=== PATIENT | female | born 1970 | race Caucasian/White ===

== ENCOUNTER 2020-06-05 05:23 | Inpatient (IN) | payer OTHER ==
[2020-06-05] MEDS ORDERED: Celecoxib 200 MG Cap PO ONE (05:30)
[2020-06-05] MEDS ORDERED: Scopolamine 1.5 MG Transdermal Patch TOP ONE (05:30)
[2020-06-05] MEDS ORDERED: Acetaminophen 500 MG Tab PO ONE (05:30)
[2020-06-05] MEDS ORDERED: Gabapentin 300 MG Cap PO ONE (05:30)
[2020-06-05] MEDS ORDERED: Dextrose 5%-Lactated Ringers 1,000 ML IV SCH (06:00)
[2020-06-05] MEDS ORDERED: cefOXitin 2 GM Vial ONE (06:38)
[2020-06-05] MEDS ORDERED: cefOXitin 2 GM in Sodium Chloride 0.9% 50 ML IV ONE (07:00)
[2020-06-05] MEDS ORDERED: Ondansetron 4 MG/2 ML SDV ONE (07:07)
[2020-06-05] MEDS ORDERED: Dexamethasone 4 MG/ML SDV ONE (07:07)
[2020-06-05] MEDS ORDERED: Rocuronium 50 MG/5 ML Vial ONE (07:07)
[2020-06-05] MEDS ORDERED: Glycopyrrolate 0.2 MG/ML 5 ML MDV ONE (07:07)
[2020-06-05] MEDS ORDERED: Propofol 200 MG/20 ML SDV ONE (07:07)
[2020-06-05] MEDS ORDERED: Succinylcholine 200 MG/10 ML MDV ONE (07:07)
[2020-06-05] MEDS ORDERED: fentaNYL 250 MCG/5 ML SDV ONE ×2 (07:07→07:54)
[2020-06-05] MEDS ORDERED: Neostigmine Methylsulfate 1 MG/ML 5 ML Syringe ONE (07:07)
[2020-06-05] MEDS ORDERED: Lactated Ringers 1,000 ML ONE (07:10)
[2020-06-05] MEDS ORDERED: Ketamine 500 MG/5 ML MDV IV SCH (08:30)
[2020-06-05] MEDS ORDERED: Ketamine 50 MG in Sodium Chloride 0.9% 49.5 ML IV SCH (08:30)
[2020-06-05] MEDS ORDERED: hydrOXYzine HCL 100 MG/2 ML SDV IM ONE (09:18)
[2020-06-05] MEDS ORDERED: fentaNYL 100 MCG/2 ML SDV IVPUSH ONE (09:18)
[2020-06-05] MEDS ORDERED: Cyclobenzaprine 10 MG Tab PO PRN (10:33)
[2020-06-05] MEDS: Dextrose 5%-Lactated Ringers 1,000 ML IV SCH ×2 (10:44→23:18)
[2020-06-05] MEDS: HYDROmorphone 0.5 MG/0.5 ML Syringe IVPUSH PRN ×2 (10:46→19:54)
[2020-06-05] MEDS ORDERED: Albuterol/Ipratropium 3.0-0.5 MG/3 ML Neb Soln INH PRN (10:59)
[2020-06-05] MEDS ORDERED: diphenhydrAMINE 50 MG/ML SDV IVPUSH PRN (11:00)
[2020-06-05] MEDS ORDERED: hydrOXYzine HCL 100 MG/2 ML SDV IM PRN (11:00)
[2020-06-05] MEDS ORDERED: HYDROmorphone 1 MG/ML Syringe IV PRN (11:00)
[2020-06-05] MEDS ORDERED: Calcium Gluconate 10% 1 GM/10 ML SDV IVPUSH PRN (11:00)
[2020-06-05] MEDS ORDERED: cefOXitin 2 GM in Sodium Chloride 0.9% 50 ML IV SCH (11:00)
[2020-06-05] MEDS ORDERED: Labetalol 20 MG/4 ML Syringe IVPUSH PRN (11:00)
[2020-06-05] MEDS ORDERED: Acetaminophen 500 MG Tab PO PRN (11:00)
[2020-06-05] MEDS: Albuterol/Ipratropium 3.0-0.5 MG/3 ML Neb Soln INH SCH ×4 (11:05→22:10)
[2020-06-05] MEDS: cefOXitin 2 GM in Sodium Chloride 0.9% 50 ML IV SCH ×2 (13:38→19:54)
[2020-06-05] MEDS: Ondansetron 4 MG/2 ML SDV IVPUSH PRN ×2 (15:32→19:54)
[2020-06-05] MEDS: oxyCODONE 5 MG Tab PO PRN (15:32)
[2020-06-05] MEDS: Acetaminophen 500 MG Tab PO SCH ×2 (15:33→23:29)
[2020-06-05] MEDS: Heparin Sodium 5,000 Units/ML Vial SUBCUT SCH (15:34)
[2020-06-05] MEDS ORDERED: MVI, Adult with Vitamin K 10 ML, Thiamine 200 MG, Chromium/Copper/Mang/Selen/Zn 1 ML in... IV SCH ×4 (16:00)
[2020-06-05] MEDS ORDERED: Pantoprazole 40 MG Vial IVPUSH SCH (16:00)
[2020-06-05] MEDS: Metoclopramide 10 MG/2 ML SDV IVPUSH PRN (16:07)
[2020-06-05] MEDS: Gabapentin 300 MG Cap PO SCH (22:10)
[2020-06-05] MEDS: Rifampin 150 MG Cap PO SCH (22:10)
[2020-06-05] MEDS: DULoxetine 30 MG Cap PO SCH (22:10)
[2020-06-05] MEDS: Topiramate 25 MG Tab PO SCH (22:11)
[2020-06-05] MEDS: Montelukast 10 MG Tab PO SCH (22:11)
[2020-06-05] MEDS: traZODone 50 MG Tab PO SCH (22:11)
[2020-06-05] MEDS: Sulfamethoxazole/Trimethoprim 800-160 MG Tab PO SCH (22:11)
[2020-06-05] MEDS ORDERED: Acetaminophen 1,000 MG in Premix Bag 1 BAG IV ONE (22:50)
[2020-06-06] MEDS: cefOXitin 2 GM in Sodium Chloride 0.9% 50 ML IV SCH ×4 (01:15→19:46)
[2020-06-06] MEDS: Ondansetron 4 MG/2 ML SDV IVPUSH PRN (03:04)
[2020-06-06] MEDS ORDERED: diphenhydrAMINE 50 MG/ML SDV IVPUSH ONE (03:30)
[2020-06-06] MEDS ORDERED: methylPREDNISolone Sodium Succinate 125 MG/2 ML SDV IVPUSH ONE (03:30)
[2020-06-06] MEDS ORDERED: Iopamidol 612 MG/ML 50 ML SDV PO STA (04:00)
[2020-06-06] MEDS: Heparin Sodium 5,000 Units/ML Vial SUBCUT SCH ×2 (04:06→15:26)
[2020-06-06] MEDS: Metoclopramide 10 MG/2 ML SDV IVPUSH PRN (05:34)
[2020-06-06] MEDS: Dextrose 5%-Lactated Ringers 1,000 ML IV SCH ×2 (05:39→13:54)
[2020-06-06] MEDS: Albuterol/Ipratropium 3.0-0.5 MG/3 ML Neb Soln INH SCH ×4 (07:41→21:28)
[2020-06-06] MEDS ORDERED: Ondansetron 4 MG Tab.DIS PO PRN (07:51)
[2020-06-06] MEDS ORDERED: hydrOXYzine HCl 25 MG Tab PO PRN (07:52)
[2020-06-06] MEDS: Celecoxib 200 MG Cap PO SCH ×2 (08:33→21:24)
[2020-06-06] MEDS: Acetaminophen 500 MG Tab PO SCH ×2 (08:33→15:26)
[2020-06-06] MEDS: Aspirin 81 MG Tab.EC PO SCH (08:34)
[2020-06-06] MEDS: DULoxetine 30 MG Cap PO SCH ×2 (08:34→21:26)
[2020-06-06] MEDS: BLACK COHASH PO SCH (08:35)
[2020-06-06] MEDS: Escitalopram 20 MG Tab PO SCH (08:35)
[2020-06-06] MEDS: lamoTRIgine 100 MG Tab PO SCH (08:35)
[2020-06-06] MEDS: SCOPOLAMINE PATCH CHECK TOP SCH (08:35)
[2020-06-06] MEDS: Loratadine 10 MG Tab PO SCH (08:35)
[2020-06-06] MEDS: Sulfamethoxazole/Trimethoprim 800-160 MG Tab PO SCH ×2 (08:36→21:26)
[2020-06-06] MEDS: Topiramate 25 MG Tab PO SCH ×2 (08:36→21:25)
[2020-06-06] MEDS: Rifampin 150 MG Cap PO SCH ×2 (08:36→21:25)
[2020-06-06] MEDS ORDERED: Rifampin 150 MG Cap PO SCH (09:00)
--- NOTE | 2020-06-06 09:26 | CR ---
[facility] HISTORY: Postbariatric surgery FINDINGS: Patient swallowed water-soluble contrast. Upright views of the abdomen show no evidence of extravasation or obstruction. There is a surgical drain in the left upper quadrant. IMPRESSION: Status post bariatric surgery No extravasation or obstruction seen
--- NOTE | 2020-06-06 12:25 | PN ---
DATE OF SERVICE: 06/06/2020 SUBJECTIVE: Ce is postop day 1. Upper GI was normal. She did have a temp max of 101.9, and had some nausea, being treated with Zofran and Reglan. REVIEW OF SYSTEMS: Remainder of review of systems negative for any pertinent positives and negatives. OBJECTIVE: GENERAL: Ce Oro is a pleasant 49-year-old female. VITAL SIGNS: TPR 98.4, 90, 18, blood pressure 153/89. HEENT: Negative. NECK: Supple. HEART: Regular rate and rhythm. LUNGS: Clear. ABDOMEN: Dressings dry and intact. REBEKA drain intact, draining a light red drainage 90 mL/hr. EXTREMITIES: Without peripheral edema. ASSESSMENT: Laparoscopic Manny-en-Y gastric bypass surgery, liver biopsy, repair of paraesophageal hernia, morbid obesity, hepatomegaly, and diaphragmatic hernia. Date of surgery 06/05/2020. PLAN: 1. Decrease IV to 100 mL per hour. 2. Step-2 gastric bypass diet without cereal. 3. Dressing off. May shower. 4. Three med cups per hour, 1 every 20 minutes. Ambulate 6 times today. Atarax 25 mg every 4 hours p.r.n. pain. 5. We will evaluate p.r.n. or in a.m. Patti Juares PA-C /[id number]
[2020-06-06] MEDS: oxyCODONE 5 MG Tab PO PRN (15:31)
[2020-06-06] MEDS ORDERED: Pantoprazole 40 MG Delayed-Release Granules 1 Packet PO SCH (16:00)
[2020-06-06] MEDS ORDERED: MVI, Adult with Vitamin K 10 ML, Thiamine 200 MG, Chromium/Copper/Mang/Selen/Zn 1 ML in... IV SCH ×4 (16:00)
[2020-06-06] MEDS ORDERED: tiZANidine 4 MG Tab PO PRN (18:32)
[2020-06-06] MEDS: traZODone 50 MG Tab PO SCH (21:24)
[2020-06-06] MEDS: Montelukast 10 MG Tab PO SCH (21:25)
[2020-06-06] MEDS: Gabapentin 300 MG Cap PO SCH (21:26)
[2020-06-07] MEDS: cefOXitin 2 GM in Sodium Chloride 0.9% 50 ML IV SCH ×2 (01:21→07:59)
[2020-06-07] MEDS: Acetaminophen 500 MG Tab PO SCH ×2 (01:21→08:00)
[2020-06-07] MEDS: Dextrose 5%-Lactated Ringers 1,000 ML IV SCH (04:49)
[2020-06-07] MEDS: Heparin Sodium 5,000 Units/ML Vial SUBCUT SCH (04:49)
[2020-06-07] MEDS: Albuterol/Ipratropium 3.0-0.5 MG/3 ML Neb Soln INH SCH (07:03)
[2020-06-07] MEDS: Celecoxib 200 MG Cap PO SCH (08:00)
[2020-06-07] MEDS: Loratadine 10 MG Tab PO SCH (08:01)
[2020-06-07] MEDS: DULoxetine 30 MG Cap PO SCH (08:01)
[2020-06-07] MEDS: Rifampin 150 MG Cap PO SCH (08:01)
[2020-06-07] MEDS: Sulfamethoxazole/Trimethoprim 800-160 MG Tab PO SCH (08:01)
[2020-06-07] MEDS: BLACK COHASH PO SCH (08:01)
[2020-06-07] MEDS: SCOPOLAMINE PATCH CHECK TOP SCH (08:01)
[2020-06-07] MEDS: Aspirin 81 MG Tab.EC PO SCH (08:02)
[2020-06-07] MEDS: Escitalopram 20 MG Tab PO SCH (08:02)
[2020-06-07] MEDS: Topiramate 25 MG Tab PO SCH (08:02)
[2020-06-07] MEDS: lamoTRIgine 100 MG Tab PO SCH (08:02)
[2020-06-07] MEDS ORDERED: Magnesium Hydroxide 400 MG/5 ML Susp 30 ML Cup PO ONE (09:00)
[2020-06-07] MEDS ORDERED: Cyanocobalamin (Vitamin B12) 1,000 MCG/ML SDV IM ONE (09:00)
--- NOTE | 2020-06-07 15:24 | DISCH ---
ADMISSION DIAGNOSES: 1. Morbid obesity with BMI of 42. 2. Chronic back pain. 3. Fibromyalgia. 4. Allergic rhinitis. 5. Insomnia. 6. Anemia. 7. Anxiety and depression. 8. Adjustment disorder. 9. Plantar fasciitis. 10.Mixed hyperlipidemia. 11.Medical marijuana use. 12.History of removal of laparoscopic gastric band. 13. use disorder, mild. DISCHARGE DIAGNOSES: Laparoscopic Manny-en-Y gastric bypass surgery, liver biopsy, repair of diaphragmatic hernia. POSTOPERATIVE DIAGNOSES: 1. Morbid obesity. 2. Hepatomegaly. 3. Diaphragmatic hernia. Date of surgery on 06/05/2020. Surgeon: Duong Mills MD. HISTORY: Ce Oro is a pleasant 49-year-old female with longstanding history of morbid obesity and increasing comorbidities. After preoperative evaluation and discussion of possible risks and possible complications, she wished to proceed with surgical procedure. HOSPITAL COURSE: Ce had her surgery on 06/05/2020. She had no operative complications. On postoperative day #1, she was started on a step 2 gastric bypass without cereal. On postoperative day #2, she received dietary instructions. Vital signs were stable. Activity was good. Pain was controlled. Oral intake adequate, and she received vitamin B12 1000 mcg IM injection. She was able to be discharged to home with no complications. PHYSICAL EXAMINATION: GENERAL: Ce Oro is a 49-year-old female. Height is 5 feet 8 inches, weight is 277 pounds and 8 ounces. VITAL SIGNS: TPR, 98.7, 92, 16, blood pressure 134/72. HEENT: Negative. NECK: Supple. HEART: Regular rate and rhythm. LUNGS: Clear. ABDOMEN: Incision healing well. Sutures intact. Abdominal binder is on. EXTREMITIES: Without peripheral edema. DISPOSITION: Discharged to home. CONDITION: Stable and improving. FOLLOWUP: Appointment with Patti Juares PA-C, at [facility] on 06/18/2020 at 10 a.m. HOME MEDICATIONS: 1. Tylenol Extra Strength 1000 mg every 8 hours. 2. Zofran 4 mg every 4 hours p.r.n. nausea #30. 3. Celebrex 200 mg b.i.d. #28. 4. She is to resume her home medications of Xanax 0.25 mg 3 times a day p.r.n. anxiety. 5. Albuterol inhaler 1 to 2 puffs every 4 hours p.r.n. shortness of breath. 6. Aspirin 81 mg oral daily. 7. Cymbalta 60 mg oral twice daily. 8. Lexapro 20 mg oral daily. 9. Neurontin 900 mg oral at bedtime. 10.Claritin 10 mg oral daily. 11.Antivert 25 mg every 4 hours p.r.n. dizziness. 12.Melatonin 5 mg at bedtime p.r.n. sleep. 13.Singulair 10 mg oral daily. 14.Norethindrone 2.5 mL oral daily p.r.n. pain. 15.Omeprazole 20 mg oral daily. 16.Papaya enzyme one daily. 17. 1 spray p.r.n. nostril for headaches. 18.Senna Plus one tablet oral daily. 19.Bactrim DS one twice daily to finish what she has been on. 20.Topamax 50 mg oral twice daily. 21.Lamictal 100 mg oral daily. 22.Oxycodone 5 mg every 3 hours p.r.n. pain. 23.Rifampin 300 mg oral twice daily. 24.Tizanidine 4 mg every 8 hours p.r.n. muscle spasms. 25.Trazodone 200 mg oral at bedtime. To discontinue taking vitamins and supplements until after first postop appointment. DIET: Step 2 gastric bypass diet with no cereal for 2 weeks until 06/13/2020. ACTIVITY: No lifting over 10 pounds for 2 weeks. Other activity: Walk at least 6 times daily inside your home. Driving: Do not drive for 1 week. Shower/bathing: May shower. DISCHARGE INSTRUCTIONS: Notify provider if any fever, increased pain, nausea, or vomiting. Wound incision care: Keep site clean and dry. Wear abdominal binder for 2 weeks and then as tolerated. Special instruction: Use incentive spirometer 10 times every hour while awake for 1 week.
--- NOTE | 2020-06-13 07:25 | OR ---
DATE OF PROCEDURE: 06/05/2020 SURGEON: Duong Mills MD PREOPERATIVE DIAGNOSIS: Morbid obesity. POSTOPERATIVE DIAGNOSES: 1. Morbid obesity. 2. Marked hepatomegaly. 3. Paraesophageal diaphragmatic hernia. OPERATIVE PROCEDURE: Diagnostic laparoscopy with: 1. Laparoscopic Amnny-en-Y gastric bypass with long limb gastroenterostomy (86834). 2. Julien-Cut needle liver biopsy (11835). 3. Repair of paraesophageal diaphragmatic hernia (36398). ANESTHESIA: General. THERMAL MOLDER: Patti Juares PA-C INDICATIONS FOR PROCEDURE: This is a 49-year-old female presenting with longstanding morbid obesity and increasingly significant comorbidities. After preoperative evaluation and discussion, she wished to proceed with a gastric bypass procedure. Potential risks including bleeding, infection, leaks from various GI tract closures, problems with bowel obstruction over time, as well as possibility of cardiopulmonary, septic, or hemorrhagic complications leading to were all discussed, and the patient wishes to proceed. DETAILS OF PROCEDURE: The patient was taken to the operating room, placed in a supine position. After general endotracheal anesthesia was induced, she was converted to a lithotomy position, and the abdomen prepped and draped. 15 cm inferior and 5 cm left of the xiphoid process, a transverse incision was made. Peritoneal cavity entered under direct vision with an Optiview trocar, inflated to 15 mmHg pressure with CO2. Laparoscope was then reinserted. No underlying trocar insertion site injuries were seen. Following this, 5 additional trocars were placed across the upper and mid abdomen and bilateral transversus abdominis plane blocks were placed. The liver was noted to be markedly enlarged and fatty infiltrated. Julien-Cut needle biopsy was obtained from left lobe of liver. Minimal bleeding from biopsy sites was controlled with electrocautery. The omentum was then divided in the midline up to the level of the transverse colon. This allowed identification of the small bowel at the ligament of Treitz. Small bowel was traced out 125 cm distal to that point, where it was divided transversely with a KEN stapler. Small bowel was then traced out additional 175 cm, where the dyra-gc-hahi enteroenterostomy was accomplished with internal firing of the Endo-KEN 60 mm stapler. Common opening was closed transversely with the same stapler and angles anastomosed and mesenteric defect approximated with some 0 Ethibond stitch along with fibrin sealant. The divided end of Manny limb was from the mesentery for a few centimeters, which allowed an antecolic positioning of the Manny limb up to the level of esophagogastric junction without tension. The liver was then retracted anteriorly. The patient was noted to have significant paraesophageal diaphragmatic hernia containing some perigastric fat and some gastric fundus. This was reduced and the peritoneum overlying incised and reflected downward. Anterior repair of the diaphragmatic hernia was then accomplished with some 0 Ethibond sutures reinforced with PTFE pledgets. The gastrointestinal catheter was then inflated to 15 mL and pulled up snugly against EG junction. Gastric wall over the apex balloon was then marked with electrocautery and balloon catheter deflated and withdrawn. The lesser omental tissue adjacent to the gastric cardia was then incised allowing dissection behind the stomach at that level. Pouch formation was then initiated with transverse firing of the KEN stapler at the level of the cauterized saundra on the gastric cardia and then completed with additional firings of KEN marsha up to and through the angle of His. Upon completion of the pouch, both staple lines were noted to be intact. The anvil of a 25 mm EEA stapler was attached to Bland sump-type tube and brought down through the mouth and taken out through a small opening in the gastric pouch, allowing the anvil likewise to be pulled down to within the gastric pouch. Divided end of the Manny limb was then opened and main body of EEA stapler passed several centimeters into the lumen of small bowel, brought up the anvil and united with it, thus creating the gastrojejunostomy. Upon removal of the stapler, double donuts of mucosa were noted within it and small bowel was closed off with a vascular staple line. Gastrojejunostomy was then reinforced with some 3-0 Vicryl seromuscular stitch along with fibrin sealant. A leak test was accomplished with injection of 25 mL of air into the gastric pouch while it was submerged with cefoxitin- containing saline solution. No leaks were identified. A single Silvestre-Gant drain was taken out through the left lateral trocar site and positioned adjacent to the gastrojejunostomy and up into the splenic fossa. Trocars were then sequentially removed and peritoneal cavity deflated. Incisions were closed with some 4-0 Vicryl skin stitch, which was also used to fix the drain. The patient was taken to the recovery room in satisfactory condition. Physician cosmetic sales assistant, Patti Juares, played an essential role in assisting in this case helping to position the patient, retract structures as needed, as well as suturing and cutting sutures when indicated. Her presence improved patient safety and decreased operative time. Duong Mills MD /[id number]
== END 2020-06-07 12:55 | disposition home or self-care (01) | DRG 621 ==
LOC: JP.MS 05:23 → JP.SDS 05:23 → EDSTATUS 08:15 → JP.MS 09:15
PROVIDERS: ADMIT Surgery; ATTEND Surgery
PROC: 0D164ZA Bypass Stomach to Jejunum, Percutaneous Endoscopic Approach (ICD-10-PCS; principal; 2020-06-05)
PROC: 0BQT4ZZ Repair Diaphragm, Percutaneous Endoscopic Approach (ICD-10-PCS; 2020-06-05)
PROC: 0FB23ZX Excision of Left Lobe Liver, Percutaneous Approach, Diagnostic (ICD-10-PCS; 2020-06-05)
DX: E66.01 Morbid (severe) obesity due to excess calories (principal); Z68.41 Body mass index [BMI] 40.0-44.9, adult; M79.7 Fibromyalgia; J30.9 Allergic rhinitis, unspecified; G47.00 Insomnia, unspecified; D64.9 Anemia, unspecified; F41.9 Anxiety disorder, unspecified; F32.9 Major depressive disorder, single episode, unspecified; F43.20 Adjustment disorder, unspecified; M72.2 Plantar fascial fibromatosis; E78.2 Mixed hyperlipidemia; F12.90 Cannabis use, unspecified, uncomplicated; R16.0 Hepatomegaly, not elsewhere classified; K44.9 Diaphragmatic hernia without obstruction or gangrene; G89.29 Other chronic pain; K59.09 Other constipation; M54.5 Low back pain; Z79.899 Other long term (current) drug therapy
CPT/HCPCS: 36415; 74240; 74240-26; 80048; 82962; 85027; 86850; 86900; 86901; 88307; 88313; 94640; A9270-GY; C9113; J0131; J0171; J0330; J0694; J1100; J1170; J1200; J1644; J2405; J2704; J2710; J2765; J2795; J2930; J3010; J3410; J3411; J3420; J3475; J3490; J7050; J7120; J7121; J7620-GY; Q9967